=== PATIENT | female | born 1945 | race Caucasian/White ===

== ENCOUNTER → 2022-05-17 10:03 | Outpatient (CLI) | payer MEDICARE, SELFPAY ==
[2022-05-17 12:15] LABS: Add Manual Diff / Slide Review NO; Basophils Absolute Auto 0 /uL (0-100); Basophils Percent Auto 0.4 % (0-2); Eosinophils Absolute Auto 200 /uL (0-450); Eosinophils Percent Auto 3.2 % (2-4); Hematocrit 41.3 % (36-46); Hemoglobin 14.5 g/dL (12.0-16.0); Lymphocytes Absolute Auto 1600 /uL (1100-4500); Lymphocytes Percent Auto 20.3 % (25-40); Mean Corpuscular HGB Conc 35.1 % (30-36); Mean Corpuscular Hemoglobin 30.1 PG (26-34); Mean Corpuscular Volume 85.6 fL (80-100); Monocytes Absolute Auto 500 /uL (0-900); Neutrophils Absolute Auto 5300 /uL (1500-7000); Neutrophils Percent Auto 69.1 % (50-75); Platelet Count 206 X10^3/uL (150-400); Red Blood Cell Count 4.82 X10^6/uL (4.0-5.2); Red Cell Distribution Width 14.1 % (11.6-14.8); White Blood Cell Count 7.7 X10^3/uL (4.5-11.0)
[2022-05-17 12:38] LABS: Hemoglobin A1C% w Est Avg Glu 5.9 % (4.0-6.0)
[2022-05-17 12:55] LABS: HEMOLYSIS < 15 (0-50); Iron 75 ug/dL (37-170)
[2022-05-17 13:09] LABS: Percent Iron Saturation 24 % (15-50); Total Iron Binding Capacity 313 ug/dL (265-497); Transferrin 238 mg/dL (206-381)
[2022-05-17 13:15] LABS: Alanine Aminotransferase 16 IU/L (<35); Albumin 4.4 g/dL (3.5-5.0); Albumin Globulin Ratio 1.5 (1.0-2.8); Alkaline Phosphatase 111 U/L (38-126); Aspartate Aminotransferase 28 IU/L (14-36); BUN Creatinine Ratio 29.6 (6-22); Bilirubin Total 0.6 mg/dL (0.2-1.3); Blood Urea Nitrogen 16 mg/dL (7-17); Carbon Dioxide 30 mmol/L (22-32); Chloride 101 mmol/L (98-107); Cholesterol 184 mg/dL (140-199); Estimated Glomerular Filt Rate > 60 mL/min (>60); Globulin 2.9 g/dL (1.7-4.1); Glucose 106 mg/dL (80-110); HDL Cholesterol 30 mg/dL (40-60); HEMOLYSIS 16 (0-50); LDL Cholesterol Calculated 93 mg/dL (<100); Potassium 3.9 mmol/L (3.4-5.1); Sodium 141 mmol/L (137-145); Total Protein 7.3 g/dL (6.3-8.2); Triglycerides 304 mg/dL (35-150)
[2022-05-17 13:28] LABS: TSH w/ Reflex to FT4 1.32 uIU/mL (0.47-4.68)
[2022-05-17 15:23] LABS: Vitamin B12 273 pg/mL (239-931)
== END ==
PROVIDERS: PCP Family Medicine; Referring Provider Family Medicine; Visit Provider Family Medicine
DX: I25.10 Atherosclerotic heart disease of native coronary artery without angina pectoris (principal); R73.03 Prediabetes; D51.9 Vitamin B12 deficiency anemia, unspecified; K27.9 Peptic ulcer, site unspecified, unspecified as acute or chronic, without hemorrhage or perforation
CPT/HCPCS: 36415; 80053; 80061; 82607; 83036; 83540; 83550; 84443; 85025

== ENCOUNTER → 2022-06-15 10:20 | Outpatient (CLI) | payer MEDICARE, SELFPAY | PROVIDERS: PCP Family Medicine; Referring Provider Family Medicine; Visit Provider Family Medicine | DX: M85.851 Other specified disorders of bone density and structure, right thigh; Z13.820 Encounter for screening for osteoporosis; M85.852 Other specified disorders of bone density and structure, left thigh; Z78.0 Asymptomatic menopausal state; M06.9 Rheumatoid arthritis, unspecified; Z90.710 Acquired absence of both cervix and uterus | CPT/HCPCS: 77080 ==

== ENCOUNTER → 2022-07-11 12:39 | Outpatient (CLI) | payer MEDICARE, SELFPAY ==
--- NOTE | 2022-07-11 12:40 | DI.MG.S_ITS ---
BILATERAL DIGITAL SCREENING MAMMOGRAM 3D/2D WITH CAD: 07/11/2022 CLINICAL: Baseline by default. No prior exams were available for comparison. Both breasts are heterogeneously dense, which may obscure small masses (category c / 51-75% glandular tissue). Current study was also evaluated with a Computer Aided Detection (CAD) system. There is a possible irregular asymmetry in the right breast at 12 o'clock anterior depth. There is architectural distortion associated with the asymmetry. No other significant masses, calcifications, or other findings are seen in either breast. IMPRESSION: INCOMPLETE: NEEDS ADDITIONAL IMAGING EVALUATION The possible irregular asymmetry in the right breast is indeterminate. Additional views with possible ultrasound are recommended. Based on the Tyrer Cuzick model (a risk assessment model) the patient's lifetime risk is 4.3% and her 10 year risk is 4.3%. According to the ACR, ACS, and NCCN guidelines, an annual breast MRI exam along with mammogram is recommended if the patient's lifetime risk is 20% or greater. This exam was interpreted at Station ID: [id number]. NOTE: For mammograms, a report in lay terms will be sent to the patient. Approximately 15% of breast malignancies will not be visualized mammographically. In the management of a palpable breast mass, a negative mammogram must not discourage biopsy of a clinically suspicious lesion. Electronically Signed By: Marie knight/keyon:07/11/2022 17:07:50 letter sent: Additional Imaging Needed ACR BI-RADS Category 0: Incomplete 3340F
== END ==
PROVIDERS: PCP Family Medicine; Referring Provider Family Medicine; Visit Provider Family Medicine
DX: Z12.31 Encounter for screening mammogram for malignant neoplasm of breast (principal)
CPT/HCPCS: 77063; 77067

== ENCOUNTER → 2022-08-07 08:35 | Outpatient (CLI) | payer MEDICARE, SELFPAY ==
--- NOTE | 2022-08-07 | DI.MG.S_ITS ---
UNILATERAL RIGHT DIGITAL DIAGNOSTIC MAMMOGRAM 3D/2D WITH ADDITIONAL VIEWS: 08/07/2022 CLINICAL: Additional evaluation requested from prior study. Comparison is made to exam dated: 07/11/2022 mammogram - [facility]. The right breast is heterogeneously dense, which may obscure small masses (category c / 51-75% glandular tissue). With focal spot compression, and additional views, the abnormality seen in the 12:00 position in the right breast on screening mammography resolves. This is consistent with overlapping fibroglandular tissue. No significant masses, calcifications, or other findings are seen in the breast. IMPRESSION: NEGATIVE Resolution of screening mammography abnormality with additional views. Return to annual mammogram screening schedule is recommended. Findings and recommendations were conveyed to the patient at time of exam. Based on the Tyrer Cuzick model (a risk assessment model) the patient's lifetime risk is 4.3% and her 10 year risk is 4.3%. According to the ACR, ACS, and NCCN guidelines, an annual breast MRI exam along with mammogram is recommended if the patient's lifetime risk is 20% or greater. This exam was interpreted at Station ID: [id number]. NOTE: For mammograms, a report in lay terms will be sent to the patient. Approximately 15% of breast malignancies will not be visualized mammographically. In the management of a palpable breast mass, a negative mammogram must not discourage biopsy of a clinically suspicious lesion. Electronically Signed By: Marie knight/:08/07/2022 09:18:19 letter sent: Normal Exam ACR BI-RADS Category 1: Negative 3341F
== END ==
PROVIDERS: PCP Family Medicine; Referring Provider Family Medicine; Visit Provider Family Medicine
DX: R92.8 Other abnormal and inconclusive findings on diagnostic imaging of breast (principal)
CPT/HCPCS: 77065; G0279

== ENCOUNTER → 2022-11-08 07:14 | Outpatient (CLI) | payer MEDICARE, SELFPAY ==
[2022-11-08 08:50] LABS: Alanine Aminotransferase 17 IU/L (<35); Albumin 4.4 g/dL (3.5-5.0); Albumin Globulin Ratio 1.6 (1.0-2.8); Alkaline Phosphatase 107 U/L (38-126); Aspartate Aminotransferase 19 IU/L (14-36); BUN Creatinine Ratio 30.4 (6-22); Bilirubin Total 0.7 mg/dL (0.2-1.3); Blood Urea Nitrogen 14 mg/dL (7-17); Calcium 9.1 mg/dL (8.4-10.2); Carbon Dioxide 31 mmol/L (22-32); Chloride 99 mmol/L (98-107); Cholesterol 180 mg/dL (140-199); Creatine Kinase 80 U/L (30-135); Estimated Glomerular Filt Rate > 60 mL/min (>60); Globulin 2.7 g/dL (1.7-4.1); Glucose 114 mg/dL (80-110); HDL Cholesterol 43 mg/dL (40-60); HEMOLYSIS < 15 (0-50); LDL Cholesterol Calculated 106 mg/dL (<100); Potassium 3.9 mmol/L (3.4-5.1); Sodium 141 mmol/L (137-145); Total Protein 7.1 g/dL (6.3-8.2); Triglycerides 157 mg/dL (35-150)
[2022-11-08 09:01] LABS: LDL Cholesterol Direct 110 mg/dL (<100)
[2022-11-08 09:40] LABS: Vitamin B12 803 pg/mL (239-931)
== END ==
PROVIDERS: PCP Family Medicine; Referring Provider Family Medicine; Visit Provider Family Medicine
DX: D51.9 Vitamin B12 deficiency anemia, unspecified (principal); E78.5 Hyperlipidemia, unspecified; R79.89 Other specified abnormal findings of blood chemistry; I10 Essential (primary) hypertension; I25.10 Atherosclerotic heart disease of native coronary artery without angina pectoris; R93.1 Abnormal findings on diagnostic imaging of heart and coronary circulation; Z95.5 Presence of coronary angioplasty implant and graft
CPT/HCPCS: 36415; 80053; 80061; 82550; 82607; 83721

== ENCOUNTER → 2022-11-08 07:16 | Outpatient (CLI) | payer MEDICARE, SELFPAY | PROVIDERS: PCP Family Medicine; Referring Provider Family Medicine; Visit Provider Family Medicine | DX: D51.9 Vitamin B12 deficiency anemia, unspecified (principal); R79.89 Other specified abnormal findings of blood chemistry; E78.5 Hyperlipidemia, unspecified; I10 Essential (primary) hypertension; I25.10 Atherosclerotic heart disease of native coronary artery without angina pectoris; R93.1 Abnormal findings on diagnostic imaging of heart and coronary circulation; Z95.5 Presence of coronary angioplasty implant and graft; R42 Dizziness and giddiness | CPT/HCPCS: 36415; 80053; 80061; 82550; 82607; 83721; 93242 ==

== ENCOUNTER 2023-09-28 11:18 | Emergency (ER) | payer MEDICARE, SELFPAY ==
[2023-09-28 11:27] VITALS: BP 190/80; PULSE 86; RESP 16; TEMP 37.3; O2SAT 97; BMI 30.1
--- NOTE | 2023-09-28 11:49 | ED_ITS ---
HPI - Recheck/Abnormal Lab/Rx General Chief Complaint: Recheck/Abnormal Lab/Rx Stated Complaint: strep B in Bladder /2/ on antibiotics Time Seen by Provider: 09/28/23 11:24 Source: patient Mode of arrival: Ambulatory History of Present Illness HPI narrative: Patient is a 78-year-old female who several days ago went to an outside walk-in clinic for evaluation of dysuria, hesitancy and other urinary symptoms. She was diagnosed with a urinary tract infection. Placed on Macrobid. She states she received a call yesterday from the clinic telling her that she needed different antibiotics because her urine grew out group B strep. She is unsure as to what they prescribed her but she went to the pharmacy. The pharmacist told her that she was allergic to the medicine. Apparently she was allergic to multiple things. She can not exactly say what antibiotics they are. She was told by the pharmacist that she needed to come to the emergency department because she most likely needed IV antibiotics. She is still having some dysuria but it is somewhat better. No vomiting. No back pain. No fevers. Related Data Home Medications Medication Instructions Recorded Confirmed ascorbic acid (vitamin C) 500 mg 500 mg PO DAILY 05/17/22 09/07/22 capsule,extended release cholecalciferol (vitamin D3) 50 50 mcg PO DAILY 05/17/22 09/07/22 mcg (2,000 unit) capsule docusate sodium 100 mg capsule 100 mg PO DAILY 05/17/22 09/07/22 (Stool Softener) hydrocortisone 1 % topical cream 1 applic topical BID PRN 05/17/22 09/07/22 (Anti-Itch (hydrocortisone)) vitamin E (dl, acetate) 180 mg 180 mg PO DAILY 05/17/22 09/07/22 (400 unit) capsule aspirin 81 mg tablet,delayed 81 mg PO DAILY 09/07/22 09/07/22 release (Adult Low Dose Aspirin) Previous Rx's Medication Instructions Recorded amlodipine 10 mg tablet 10 mg PO DAILY #90 tabs 05/23/23 famotidine 20 mg tablet 20 mg PO BID #180 tabs 09/27/23 clindamycin HCl 300 mg capsule 300 mg PO Q8H 7 days #21 caps 09/28/23 Allergies Allergy/AdvReac Type Severity Reaction Status Date / Time morphine Allergy Severe Hallucinati Verified 03/10/23 13:27 ng Penicillins Allergy Verified 09/28/23 11:47 contrast Allergy Severe blind Uncoded 11/30/22 13:27 Review of Systems Constitutional Constitutional: Reports system reviewed and no additional complaints, except as documented Gastrointestinal Gastrointestinal: Reports system reviewed and no additional complaints, except as documented Genitourinary Genitourinary: Reports system reviewed and no additional complaints, except as documented Integumentary/Breasts Skin/Breast: Reports system reviewed and no additional complaints, except as documented Patient History Medical History Hyperlipemia, mixed Preventative health care Well adult exam Rheumatoid arthritis (~2005) Asthma (~2017) Fractures (~2005) Foot pain (~2005) Measles Chicken pox Vertigo (~2018) Kidney stones (~2016) Ulcer (~2011) GI bleeding Colon polyps (~2011) Hypertension (~1998) GERD (gastroesophageal reflux disease) B12 deficiency anemia PUD (peptic ulcer disease) Pre-diabetes CAD (coronary artery disease) (~1998) Surgical History Anesthesia History of coronary artery bypass graft x 3 (~1998) History of coronary artery stent placement (~2001) History of partial hysterectomy (~1982) Tibia/fibula fracture (~2002) Family History Father Congestive heart failure Mother History of heart disease Brother Cancer Brother History of emphysema Grandfather Cancer History of heart disease Grandmother Broken heart syndrome Social History Smoking Status: Former smoker Smoking Status: Former smoker Substance Use Type: does not use Exam Initial Vital Signs Initial Vital Signs: Vital Signs Temperature 99.1 F 09/28/23 11:27 Pulse Rate 86 09/28/23 11:27 Respiratory Rate 16 09/28/23 11:27 Blood Pressure 190/80 H 09/28/23 11:27 Pulse Oximetry 97 09/28/23 11:27 Oxygen Delivery Method Room Air 09/28/23 11:27 Const General: cooperative, comfortable and No ill appearing HENMT Head: normal to inspection and normocephalic Resp Effort & Inspection: normal respiratory effort Cardio Rate: regular rate GI Inspection: non-distended Neuro General: patient alert and patient awake Course Vital Signs Vital signs: Vital Signs - 8 hr 09/28/23 11:27 Temperature 99.1 F Pulse Rate 86 Respiratory Rate 16 Blood Pressure 190/80 H Pulse Oximetry 97 Oxygen Delivery Method Room Air MDM - Recheck/Abnormal Lab/Rx MDM Narrative Medical decision making narrative: Patient is not exactly sure what antibiotic she is allergic to. We have attempted but have been unable to get hold of anyone who can give us the culture results. The patient does not have the culture results. She states that her pharmacy does not have all of her allergies listed. She describes her allergies as ?the one that smells like rotten eggs? and describes colors of pills. Patient states that she has taken Cipro before however Cipro has variable sensitivities to GBS. Clindamycin would be an appropriate alternative. Patient states that she does not think that she was allergic to clindamycin. She is allergic to penicillin, Keflex and most likely sulfa. Will try clindamycin. She already has a follow-up appointment scheduled with her primary doctor for the of this month. Discharge Plan Departure Patient Disposition: Home Clinical Impression: Acute UTI Instructions: DI for Urinary Tract Infection (UTI) Activity Restrictions/Additional Instructions: A prescription for a medication called clindamycin was sent to [facility] pharmacy in [place]. Group B strep is susceptible to this antibiotic. I recommend you take it as directed. Keep your scheduled follow-up with your primary doctor later this month. Return to the emergency department for new symptoms. Prescriptions: New clindamycin HCl 300 mg capsule 300 mg PO Q8H 7 Days Qty: 21 0RF No Action amlodipine 10 mg tablet 10 mg PO DAILY Qty: 90 3RF famotidine 20 mg tablet 20 mg PO BID Qty: 180 3RF aspirin [Adult Low Dose Aspirin] 81 mg tablet,delayed release (DR/EC) 81 mg PO DAILY ascorbic acid (vitamin C) 500 mg capsule, extended release 500 mg PO DAILY cholecalciferol (vitamin D3) 50 mcg (2,000 unit) capsule 50 mcg PO DAILY vitamin E (dl, acetate) 180 mg (400 unit) capsule 180 mg PO DAILY docusate sodium [Stool Softener] 100 mg capsule 100 mg PO DAILY hydrocortisone [Anti-Itch (HC)] 1 % cream 1 applic topical BID PRN Referrals: Aldo Morales, DO [Primary Care Provider] - Stand Alone Forms: Patient Portal/API
[2023-09-28 12:24] VITALS: BP 137/70
== END 2023-09-28 12:24 | disposition home or self-care (01) ==
PROVIDERS: Emergency Provider Emergency Medicine; PCP Family Medicine
DX: N39.0 Urinary tract infection, site not specified (principal)
CPT/HCPCS: 99281

== ENCOUNTER → 2023-10-04 11:47 | Outpatient (CLI) | payer MEDICARE, SELFPAY | PROVIDERS: PCP Family Medicine; Visit Provider Family Medicine | DX: N39.0 Urinary tract infection, site not specified (principal) | CPT/HCPCS: 87086 ==

== ENCOUNTER → 2023-11-07 11:18 | Outpatient (CLI) | payer MEDICARE, SELFPAY ==
[2023-11-07 13:32] LABS: COVID-19 CEPHEID 4-PLEX PCR Negative (Negative); Influenza A - CEPHEID Flu A NEGATIVE (NEGATIVE); Influenza B - CEPHEID Flu B NEGATIVE (NEGATIVE); Respiratory Syncytial Virus Negative (Negative)
== END ==
PROVIDERS: PCP Family Medicine; Visit Provider Physician Assistant
DX: R05.1 Acute cough (principal)
CPT/HCPCS: 0241U

== ENCOUNTER → 2023-11-07 11:20 | Outpatient (CLI) | payer MEDICARE, SELFPAY ==
--- NOTE | 2023-11-07 11:21 | DI.RAD.S_ITS ---
PROCEDURE: XR CHEST 2V INDICATIONS: cough x 6 days TECHNIQUE: 2 views of the chest were acquired. COMPARISON: None. FINDINGS: Surgical changes and devices: Surgical clips in the mediastinum. Lungs and pleura: Mild bilateral diffuse interstitial prominence. Left lower lobe patchy consolidation. No pleural effusions or pneumothorax. Mediastinum: Mediastinal contours are normal. Heart size is normal. Bones and chest wall: No suspicious bony abnormalities. Soft tissues appear unremarkable. Multilevel degenerative changes of the spine. IMPRESSION: Mild diffuse interstitial prominence which may reflect pulmonary edema. Left lower lobe patchy consolidation which may represent superimposed atelectasis, aspiration and/or pneumonia. Dictated by: Sophia Alexis M.D. on 11/07/2023 at 13:39 Approved by: Sophia Alexis M.D. on 11/07/2023 at 13:40
== END ==
LOC: RAD 11:21
PROVIDERS: PCP Family Medicine; Referring Provider Physician Assistant; Visit Provider Physician Assistant
DX: R05.1 Acute cough (principal)
CPT/HCPCS: 0241U; 71046